=== PATIENT | female | born 1935 | race Caucasian/White ===

== ENCOUNTER 2016-12-01 08:58 | Emergency (ER) | payer MEDICAID, OTHER ==
[2016-12-01 09:07] VITALS: BMI 27.2
[2016-12-01] MEDS ORDERED: ASPIRIN 81 MG CHEWTAB ONE (09:11)
[2016-12-01 09:32] LABS: BASOPHILS # (AUTO) 0.1 X10^3/uL (0.0-0.1); BASOPHILS % (AUTO) 0.7 % (0.2-1.0); EOSINOPHILS # (AUTO) 0.6 x10^3/uL (0.0-0.2); EOSINOPHILS % (AUTO) 6.7 % (0.9-2.9); HEMATOCRIT 39.3 % (36.0-47.0); HEMOGLOBIN 13.2 g/dL (12.0-16.0); LYMPHOCYTES # (AUTO) 1.7 X10^3/uL (1.3-2.9); LYMPHOCYTES % (AUTO) 18.5 % (21.0-51.0); MEAN CORPUSCULAR HEMOGLOBIN 28.2 pg (27.0-34.0); MEAN CORPUSCULAR HGB CONC 33.7 g/dL (33.0-35.0); MEAN CORPUSCULAR VOLUME 83.7 fL (80.0-100.0); MEAN PLATELET VOLUME 8.7 fL (7.4-11.0); MONOCYTES # (AUTO) 0.8 x10^3/uL (0.3-0.8); MONOCYTES % (AUTO) 8.4 % (0.0-13.0); NEUTROPHILS % (AUTO) 65.7 % (42.0-75.0); PLATELET COUNT 187 X10^3/uL (150.0-450.0); RED CELL DISTRIBUTION WIDTH 14.3 % (11.6-16.5); WHITE BLOOD COUNT 9.2 X10^3/uL (3.6-10.0)
[2016-12-01 09:48] LABS: B-TYPE NATRIURETIC PEPTIDE 71.2 pg/mL (0-79)
[2016-12-01 09:50] LABS: BLOOD UREA NITROGEN 16 mg/dL (7-18); CALCIUM 8.3 mg/dL (8.5-10.1); CARBON DIOXIDE 29.6 mmol/L (21-32); CHLORIDE 106 mmol/L (98-107); CREATININE 1.16 mg/dL (0.55-1.02); GLUCOSE 75 mg/dL (65-99); SODIUM 142 mmol/L (136-145); TROPONIN I < 0.02 ng/mL (0-1.5); eGFR BLACK RACES 58 (>60); eGFR NON BLACK RACES 48 (>60)
[2016-12-01 09:52] LABS: ALANINE AMINOTRANSFERASE 19 Units/L (12-78); ALBUMIN 3.6 g/dL (3.4-5.0); ALKALINE PHOSPHATASE 71 Units/L (46-116); ASPARTATE AMINO TRANSFERASE 18 Units/L (15-37); CKMB % 1.3 % (<4); CREATINE KINASE 77 Units/L (26-192); CREATINE KINASE MB < 1.0 ng/mL (0-4.0); MAGNESIUM 2.3 mg/dL (1.7-2.9); TOTAL PROTEIN 7.2 g/dL (6.4-8.2)
--- NOTE | 2016-12-01 09:59 | DR.CP ---
HPI - Time Seen Time seen: 09:45 - PCP Primary Care Physician: ZACH PATEL - HPI Comment HPI Comment: 81 yo c/o right sided chest pain and SOB for 2 days. Pain is rated as 6-7/10 and is sharp in nature.She denies diaphoresis, nausea, pain radiation and dizziness. She fainted in sikhism on Monday, when stood for prayer.Additionally she had forgotten to eat the day before. She reports a nonproductive cough w/o fever. - Complaint Chief Complaint Doctor Comments: " Chest hurts" Chief Complaint:: PT C/O CHEST PAIN THAT STARTED IN THE LEFT SIDE NOW IT RADIATES TO HER RIGHT CHEST.... PT C/O PAIN WHEN SHE TAKES A GOOD DEEP BREATHE. - Reviewed Nurses Notes Review: Yes - Source History Provided: Patient - Mode of Arrival Mode of Arrival: Ambulatory - Timing Onset of Chief Complaint: 11/29/16 Came on: Gradually Pain: Present Now - Duration Duration: Intermittent How lon Duration: Days - Location Location of Chest Pain: Right Chest Pain Radiation Location: None (today), Back (yesterday) - Context Onset: At rest Cardiac Risk Factors: Hyperlipidemia, HTN. denies: Smoker, Family History, Diabetes, Cocaine PE Risk Factors: None History of: None Prehospital Care: None - Quality Quality: Sharp, Pressure like - Severity Severity: Moderate - Modifying Factors Worsens: Breathing Impoves: Rest - Associated Signs and Symptoms Associated Signs and Symptoms: None, Shortness of Breath PMH - PMH Past Medical History: Yes Past Medical History: Asthma, Dyslipidemia, Hypertension Past Surgical History: Yes Surgical History: Cholecystectomy, Other - Family History History of Family Medical Conditions: Yes Family Medical History: Cancer - Social History Does patient currently use any type of tobacco product: No Have you used tobacco products in the last 12 months: No Type of Tobacco Use: None Does any household member use tobacco: No Alcohol Use: None Do you use any recreational Drugs:: No Lives With: Alone Lives Where: Home - infectious screening In the last 2 months have you had wt loss of >10#?: NO Have you had fever, night sweats or hemotysis?: No Have you traveled outside the country in the last 6 months?: No Isolation: Standard ROS - Review of Systems Constitutional: No Symptoms Reported Eyes: No Symptoms Reported ENTM: No Symptoms Reported, Hearing Loss Respiratoy: Dry Cough, Short of Breath Cardiovascular: See HPI, Chest Pain Gastrointestinal/Abdominal: No Symptoms Reported Genitourinary: No Symptoms Reported Neurological: No Symptoms Reported Musculoskeletal: No Symptoms Reported Integumentary: No Symptoms Reported Hematologic/Lymphatic: No Symptoms Reported Endocrine: No Symptoms Reported Psychiatric: No Symptoms Reported All Other Systems: Reviewed and Negative PE - Vitals Vitals: Pulse Rate [Left Brachial] 60 Pulse Rate 63 Respiratory Rate 18 Blood Pressure [Left Arm] 154/74 Blood Pressure 141/85 O2 Sat by Pulse Oximetry 98 - General Limitations: No Limitations General Appearance: Alert, In No Apparent Distress - Head Head Exam: Normal Inspection - Eyes Eye exam: Normal Appearance - Chest Chest Inspection: Normal Inspection, Symmetric Chest Wall Rise - Respiratory Respiratory Exam: Normal Lung Sounds Bilat Respiratory Exam: Bilateral Clear to Auscultation - Cardiovascular Cardiovascular Exam: Regular Rate, Normal Rhythm, Normal Heart Sounds Pulse: Normal - Abdominal Exam Abdominal Exam: Normal Inspection, Normal Bowel Sounds, Soft - Extremities Extremities Exam: Normal Inspection, Full ROM - Back Back Exam: Normal Inspection - Neurologic Neurological Exam: Alert, Oriented X3, CN II-XII Intact - Psychiatric Psychiatric Exam: Normal Affect, Normal Mood - Skin Skin Exam: Warm, Dry, Intact, Normal Color MDM - Differential Diagnosis Differential Diagnosis: Chest Wall Pain, Costochondritis, Esophageal Reflux/ Spasm, Gastritis, Pneumonia, Pulmonary Embolus ROR - Labs Reviewed Laboratory Results Reviewed?: Yes Result Diagrams: 12/01/16 09:05 12/01/16 09:05 Laboratory: WBC 9.2 X10^3/uL (3.6-10.0) 12/01/16 09:05 RBC 4.70 X10^6/uL (3.5-5.4) 12/01/16 09:05 Hgb 13.2 g/dL (12.0-16.0) 12/01/16 09:05 Hct 39.3 % (36.0-47.0) 12/01/16 09:05 MCV 83.7 fL (80.0-100.0) 12/01/16 09:05 MCH 28.2 pg (27.0-34.0) 12/01/16 09:05 MCHC 33.7 g/dL (33.0-35.0) 12/01/16 09:05 RDW 14.3 % (11.6-16.5) 12/01/16 09:05 Plt Count 187 X10^3/uL (150.0-450.0) 12/01/16 09:05 MPV 8.7 fL (7.4-11.0) 12/01/16 09:05 Neut % 65.7 % (42.0-75.0) 12/01/16 09:05 Lymph % 18.5 % (21.0-51.0) L 12/01/16 09:05 Trinity % 8.4 % (0.0-13.0) 12/01/16 09:05 Eos % 6.7 % (0.9-2.9) H 12/01/16 09:05 Baso % 0.7 % (0.2-1.0) 12/01/16 09:05 Neut # 6.0 x10^3/uL (2.2-4.8) H 12/01/16 09:05 Lymph # 1.7 X10^3/uL (1.3-2.9) 12/01/16 09:05 Trinity # 0.8 x10^3/uL (0.3-0.8) 12/01/16 09:05 Eos # 0.6 x10^3/uL (0.0-0.2) H 12/01/16 09:05 Baso # 0.1 X10^3/uL (0.0-0.1) 12/01/16 09:05 Absolute Nucleated RBC 0.0 /100WBC 12/01/16 09:05 INR Target Range - 12/01/16 09:05 INR 1.00 (0.8-1.3) 12/01/16 09:05 PTT 24.3 SECONDS (22.9-36.5) 12/01/16 09:05 PTT Comment - 12/01/16 09:05 D-Dimer 815 ng/mL (0-400) H* 12/01/16 09:05 Sodium 142 mmol/L (136-145) 12/01/16 09:05 Corrected Sodium TNP 12/01/16 09:05 Potassium 4.4 mmol/L (3.5-5.1) 12/01/16 09:05 Chloride 106 mmol/L (98-107) 12/01/16 09:05 Carbon Dioxide 29.6 mmol/L (21-32) 12/01/16 09:05 BUN 16 mg/dL (7-18) 12/01/16 09:05 Creatinine 1.16 mg/dL (0.55-1.02) H 12/01/16 09:05 Est GFR (MDRD) Af Amer 58 (>60) L 12/01/16 09:05 Est GFR (MDRD) Non-Af 48 (>60) L 12/01/16 09:05 Glucose 75 mg/dL (65-99) 12/01/16 09:05 Calcium 8.3 mg/dL (8.5-10.1) L 12/01/16 09:05 Corrected Calcium TNP 12/01/16 09:05 Magnesium 2.3 mg/dL (1.7-2.9) 12/01/16 09:05 Total Bilirubin 0.30 mg/dL (0.2-1.0) 12/01/16 09:05 AST 18 Units/L (15-37) 12/01/16 09:05 ALT 19 Units/L (12-78) 12/01/16 09:05 Alkaline Phosphatase 71 Units/L (46-116) 12/01/16 09:05 Creatine Kinase 77 Units/L (26-192) 12/01/16 09:05 CK-MB (CK-2) < 1.0 ng/mL (0-4.0) 12/01/16 09:05 CK/CKMB % Calc 1.3 % (<4) 12/01/16 09:05 Troponin I < 0.02 ng/mL (0-1.5) 12/01/16 09:05 B-Natriuretic Peptide 71.2 pg/mL (0-79) 12/01/16 09:05 Total Protein 7.2 g/dL (6.4-8.2) 12/01/16 09:05 Albumin 3.6 g/dL (3.4-5.0) 12/01/16 09:05 Globulin 3.6 g/dL (2.5-4.5) 12/01/16 09:05 Albumin/Globulin Ratio 1.0 Ratio (1.1-2.1) L 12/01/16 09:05 Additional Notes - Additional Notes Additional Notes: Patient has a negative cardiac w/u and has h/o of fall in sikhism on Monday. she has been working in the yard pulling weeds for the last 2- 3 days. She does not smoke, and is not overweight and does not lead a sedentary lifestyle. Her O2 sat is 99% on RA. She is not tachypneic and she is not tachycardic. I spoke with Dr. Cox , who is covering for Dr Lawson and he agrees that although the D dimer is elevated that she does not have a PE and the elevated D dimer is due to the fall in sikhism on Monday. - Diagnosis Discharge Problem: Chest pain made worse by breathing, Anterior chest wall pain, Right-sided chest wall pain, Hiatal hernia, Costochondral chest pain - Discharge Plan Disposition: 01 HOME, SELF-CARE Condition: Stable - Follow ups/Referrals Follow ups/Referrals: AARON LAWSON [Primary Care Provider] - 3 days - Instructions Instructions: Chest Pain Observation, Thoracic Strain, [id number]
[2016-12-01] MEDS ORDERED: ASPIRIN 81 MG CHEWTAB PO SCH (10:00)
--- NOTE | 2016-12-01 10:17 | RAD ---
HISTORY: Chest pain Study: Single view of the chest. Comparison: None. Findings: The cardiomediastinal silhouette is normal. No focal consolidations, pleural effusions or pneumothora x. Osseous structures demonstrate no acute abnormality. Large hiatal hernia. IMPRESSION: 1. No acute cardiopulmonary process. Reported By:
[2016-12-01 10:19] VITALS: BP 154/74
--- NOTE | 2016-12-01 11:01 | CT ---
CT chest with contrast Indication: Chest pain, elevated D-dimer. Comparison: None Technique: CT images of the chest were obtained without contrast. Automatic exposure control was util ized. Findings: Chronic compression deformities of T11, T12, and L1 appear similar to the MRI lumbar spine from 04/08/2016. No acute skeletal abnormality. Images through the upper abdomen demonstrate large hi atal hernia of the stomach. The heart size is normal, without significant pericardial thickening or pericardial effusion. Scatter ed coronary and thoracic aortic atherosclerotic calcifications are noted. No suspicious intrathoracic lymph nodes are seen. Small scattered calcified granulomas are seen within the right lung. The lungs are otherwise essentially clear without focal infiltrates, pleural effusion, or pneumothorax. Impression: No acute process identified on this noncontrast CT to explain patient's symptoms. Large hiatal hernia and other findings as above. Reported By:
== END 2016-12-01 12:00 | disposition home or self-care (01) ==
LOC: ER 09:11
DX: R07.89 Other chest pain (principal); K44.9 Diaphragmatic hernia without obstruction or gangrene; R06.02 Shortness of breath; R07.1 Chest pain on breathing
CPT/HCPCS: 36415; 71010; 71250; 80053; 82550; 82553; 83735; 83880; 84484; 85025; 85378; 85610; 85730; 93005; 93010; 96365; 96374; 99283; A4222